=== PATIENT | male | born 1995 | race Caucasian/White ===

== ENCOUNTER 2017-10-14 09:20 | Emergency (ER) | payer OTHER ==
--- NOTE | 2017-10-14 10:17 | RAD ---
LEFT SHOULDER THREE VIEWS: History: Left shoulder injury. Fall. FINDINGS: Acromioclavicular and glenohumeral alignment are maintained. Humeral head contours are maintained. No acute fracture or dislocation are visible. IMPRESSION: No acute osseous abnormalities are demonstrated. POS: [facility]
== END 2017-10-14 10:23 | disposition home or self-care (01) ==
LOC: SCSER 09:20
DX: S46.912A Strain of unspecified muscle, fascia and tendon at shoulder and upper arm level, left arm, initial encounter (principal); W00.0XXA Fall on same level due to ice and snow, initial encounter; Y99.0 Civilian activity done for income or pay